=== PATIENT | female | born 1950 | race African-American/Black ===

== ENCOUNTER 2019-09-05 15:10 | Emergency (ER) | payer MEDICARE, MEDICAID ==
[~2019-09-05] VITALS: Ht 167.6 cm; Wt 60.0 kg
[2019-09-05] MEDS ORDERED: LORAZEPAM 1MG TABLET PO ONE (18:30)
[2019-09-05 19:04] LABS: BASOPHILS % 0.5 % (0.0-2.0); EOSINOPHILS % 1.3 % (0.0-5.0); HEMATOCRIT. 36.5 % (36.0-48.0); HEMOGLOBIN. 12.2 g/dL (12.0-16.0); LYMPHOCYTES % 31.8 % (20.0-50.0); MEAN CORPUSCULAR HEMOGLOBIN 30.4 pg (28.0-32.0); MEAN CORPUSCULAR VOLUME 90.6 fL (81.0-99.0); MEAN PLATELET VOLUME 9.1 fl (7.4-10.4); MONOCYTES % 11.3 % (2.0-8.0); NEUTROPHILS % 55.1 % (40.0-76.0); PLATELET 125 x1000/uL (130-400); RED BLOOD CELL COUNT 4.03 mill/uL (4.2-5.4); RED CELL DISTRIBUTION WIDTH 13.8 % (11.6-14.6)
[2019-09-05 19:10] LABS: CHLORIDE 110 mEq/L (98-107)
[2019-09-05 19:14] LABS: ETHANOL BLOOD < 10 mg/dL
[2019-09-06 08:07] LABS: *AMPHETAMINES SCREEN URINE NEGATIVE (NEGATIVE)
[2019-09-06 08:08] LABS: *BARBITURATES SCREEN URINE NEGATIVE (NEGATIVE); *BENZODIAZEPINES SCREEN URINE NEGATIVE (NEGATIVE); *COCAINE SCREEN URINE NEGATIVE (NEGATIVE); METHADONE URINE SCREEN NEGATIVE (NEGATIVE); OPIATES URINE SCREEN NEGATIVE (NEGATIVE)
[2019-09-06 08:09] LABS: CANNABINOID URINE SCREEN NEGATIVE (NEGATIVE); PHENCYCLIDINE URINE SCREEN NEGATIVE (NEGATIVE)
[2019-09-07 14:24] VITALS: BP 142/69
== END 2019-09-07 14:25 | disposition home or self-care (01) ==
LOC: ER 15:10
DX: F32.9 Major depressive disorder, single episode, unspecified (principal); R53.1 Weakness; R63.0 Anorexia; R45.851 Suicidal ideations; I10 Essential (primary) hypertension; E86.0 Dehydration; Z68.21 Body mass index [BMI] 21.0-21.9, adult
CPT/HCPCS: 36415; 80307; 80320; 80329; 84443; 93005; 99284; G0480

== ENCOUNTER 2019-11-23 11:47 | Emergency (ER) | payer MEDICARE, MEDICAID ==
[~2019-11-23] VITALS: Ht 165.1 cm; Wt 45.0 kg
[2019-11-23] MEDS ORDERED: IBUPROFEN 600MG TABLET PO ONE (15:45)
[2019-11-23 16:30] LABS: CLARITY URINE CLEAR (CLEAR); COLOR URINE YELLOW (YELLOW); KETONES URINE 1+ (NEGATIVE); LEUKOCYTE ESTERASE URINE TRACE (NEGATIVE); NITRITE URINE NEGATIVE (NEGATIVE); OCCULT BLOOD URINE NEGATIVE (NEGATIVE); PH URINE 5.5 (4.5-8.0); PROTEIN URINE NEGATIVE (NEGATIVE); SPECIFIC GRAVITY URINE 1.022 (1.005-1.030)
[2019-11-23 17:38] VITALS: BP 154/76
== END 2019-11-23 17:38 | disposition home or self-care (01) ==
LOC: ER 11:47
DX: S42.212A Unspecified displaced fracture of surgical neck of left humerus, initial encounter for closed fracture (principal); W01.0XXA Fall on same level from slipping, tripping and stumbling without subsequent striking against object, initial encounter; Y93.9 Activity, unspecified; Y92.9 Unspecified place or not applicable; I10 Essential (primary) hypertension; N39.0 Urinary tract infection, site not specified
CPT/HCPCS: 71045; 73030; 81003; 99284; L3670